=== PATIENT | male | born 2005 | race Caucasian/White ===

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

== ENCOUNTER → 2024-02-16 | Outpatient (CLI) | payer OTHER ==
--- NOTE | 2024-02-17 19:41 | CT ---
EXAMINATION TYPE: CT sinus wo con DATE OF EXAM: 02/16/2024 COMPARISON: None HISTORY: Chronic sinusitis, trouble breathing through nose CT DLP: 580 mGycm. Automated Exposure Control for Dose Reduction was Utilized. TECHNIQUE: CT scan of the sinuses is performed without contrast, axial images are obtained, coronal r eformatted images are also reviewed. FINDINGS: The paranasal sinuses including the frontal, ethmoid, sphenoid, and maxillary sinuses bila terally are well-aerated without abnormal opacification. The ostiomeatal complex is patent bilateral ly on the coronal images. There are no air-fluid levels or mucus retention cysts or polyps. Visualized portion of mastoid air cells show no abnormal opacification. The globes are intact bilate rally. IMPRESSION: The sinuses are clear and the ostiomeatal complex is patent bilaterally.
== END | disposition home or self-care (01) ==
LOC: RADCTMAIN 12:01
PROVIDERS: ATTEND Otolaryngology Facial Plastic Surgery
DX: J32.9 Chronic sinusitis, unspecified (principal); R06.00 Dyspnea, unspecified
CPT/HCPCS: 70486